=== PATIENT | female | born 1945 | race Caucasian/White ===

== ENCOUNTER 2016-10-19 07:21 | Day surgery (SDC) | payer MEDICARE ==
[~2016-10-19 07:21] MED LIST: BRIMONIDINE 0.2% OPHTH DROPS 5 ML ONE; CYCLOPENTOLATE 1% OPHTH DROPS 2 ML ONE; KETOROLAC 0.45% OPHTH DROPS ONE; PHENYLEPHRINE 2.5% OPHTH 2 ML DROPS ONE; PROPARACAINE 0.5% OPHTH DROPS 15 ML ONE; TIMOLOL 0.5% OPHTH DROPS ONE
[2016-10-19] MEDS ORDERED: PHENYLEPHRINE 2.5% OPHTH 2 ML DROPS OPTH ONE (07:39)
[2016-10-19] MEDS ORDERED: CYCLOPENTOLATE 1% OPHTH DROPS 2 ML OPTH ONE (07:39)
[2016-10-19] MEDS ORDERED: KETOROLAC 0.45% OPHTH DROPS OPTH ONE (07:39)
[2016-10-19] MEDS ORDERED: PROPARACAINE 0.5% OPHTH DROPS 15 ML OPTH ONE ×2 (07:39→08:27)
[2016-10-19] MEDS ORDERED: LACTATED RINGERS 500 ML IV ONE (07:51)
[2016-10-19] MEDS ORDERED: BRIMONIDINE 0.2% OPHTH DROPS 5 ML OPTH ONE (08:26)
[2016-10-19] MEDS ORDERED: BSS/LIDOCAINE/EPINEPHRINE 1 ML SYRINGE IO ONE ×2 (08:27)
[2016-10-19] MEDS ORDERED: CHONDR SULF/HYALURONATE SYRINGE IO ONE (08:27)
[2016-10-19] MEDS ORDERED: EPINEPHrine 1 MG/ML AMP IVP ONE (08:27)
[2016-10-19] MEDS ORDERED: TIMOLOL 0.5% OPHTH DROPS OPTH ONE (08:27)
[2016-10-19] MEDS ORDERED: TRIAMCIN/MOXIFLOX/VANCO 1 ML VIAL IO ONE ×2 (08:27)
[2016-10-19] MEDS ORDERED: MIDAZOLAM 2 MG/2 ML VIAL IVP ONE (08:30)
[2016-10-19 09:17] VITALS: BP 138/62
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
== END 2016-10-19 07:22 | disposition home or self-care (01) ==
LOC: SDS 07:21
PROVIDERS: ATTEND Ophthalmology
PROC: 08RK3JZ Replacement of Left Lens with Synthetic Substitute, Percutaneous Approach (ICD-10-PCS; principal; 2016-10-19 08:30)
DX: H25.11 Age-related nuclear cataract, right eye (principal)
CPT/HCPCS: 66984; A9270; J3490; V2632; V2788

== ENCOUNTER 2016-11-23 07:56 | Day surgery (SDC) | payer MEDICARE ==
[2016-11-23] MEDS ORDERED: LACTATED RINGERS 1,000 ML IV ONE (08:20)
[2016-11-23] MEDS ORDERED: PROPARACAINE 0.5% OPHTH DROPS 15 ML OPTH ONE ×2 (08:35→09:13)
[2016-11-23] MEDS ORDERED: KETOROLAC 0.45% OPHTH DROPS OPTH ONE (08:35)
[2016-11-23] MEDS ORDERED: PHENYLEPHRINE 2.5% OPHTH 2 ML DROPS OPTH ONE (08:35)
[2016-11-23] MEDS ORDERED: CYCLOPENTOLATE 1% OPHTH DROPS 2 ML OPTH ONE (08:35)
[2016-11-23] MEDS ORDERED: BRIMONIDINE 0.2% OPHTH DROPS 5 ML OPTH ONE (09:12)
[2016-11-23] MEDS ORDERED: EPINEPHrine 1 MG/ML AMP IVP ONE (09:12)
[2016-11-23] MEDS ORDERED: TIMOLOL 0.5% OPHTH DROPS OPTH ONE (09:13)
[2016-11-23] MEDS ORDERED: CHONDR SULF/HYALURONATE SYRINGE IO ONE (09:13)
[2016-11-23] MEDS ORDERED: BSS/LIDOCAINE/EPINEPHRINE 1 ML SYRINGE IO ONE ×2 (09:13)
[2016-11-23] MEDS ORDERED: TRIAMCIN/MOXIFLOX/VANCO 1 ML VIAL IO ONE ×2 (09:14)
[2016-11-23] MEDS ORDERED: MIDAZOLAM 2 MG/2 ML VIAL IVP ONE (09:30)
[2016-11-23 10:14] VITALS: BP 112/68
--- NOTE | 2016-11-23 10:21 | OPERATIVE REPORT ---
DATE OF SURGERY: 11/23/2016 00:00:00 PREOPERATIVE DIAGNOSIS: Visually significant cataract, left eye. Cataract surgery was performed on th e right eye on 10/19/2016. POSTOPERATIVE DIAGNOSIS: Visually significant cataract, left eye. Cataract surgery was performed on t he right eye on 10/19/2016. NAME OF PROCEDURE: Phacoemulsification posterior chamber intraocular lens implant, left eye, with las er assist. SURGEON: Edwardo Wood MD. ANESTHESIA: Monitored anesthesia care. COMPLICATIONS: None. 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 Best corrected visual acuity was 20/30 with glare to 20/60 in the left eye. Indications for surgery were overall decrease in vision, difficulty s eeing words on a computer screen, difficulty seeing words or close captions on TV, difficulty seeing street signs, difficulty driving in low light or at night. She was consented at length concerning the risks and benefits of cataract surgery, after which she expressed a desire to proceed with surgery. OPERATIVE PROCEDURE: The patient was taken to OR #2 and placed under monitored anesthesia care. A kassy gical time-out was conducted confirming the correct patient, correct procedure and correct surgical s ite. She was placed under the LenSx laser and her eye docked to the laser interface. The laser perfor med the capsulotomy, softening, phaco wounds, and arcuate keratotomy incisions. She was then moved to the operating microscope, given topical anesthesia, and prepped and draped in the usual sterile fash ion. The eye was entered at the 6- and 3 o'clock positions. Intracameral Shugarcaine was injected int o the anterior chamber, followed by Viscoat. Capsulorrhexis flap created by the LenSx laser was remov ed from the anterior chamber. The nucleus was hydrodissected and phacoemulsified. The cortex was evac uated using automated infusion aspiration. Provisc was injected into the capsular bag and a 19.[address] multifocal intraocular lens was inserted into the bag. Approximately 0.7 mL of a mixture of triam cinolone, moxifloxacin, and vancomycin was injected subconjunctivally in the superior quadrant for in fection and inflammation prophylaxis. I/A was used to evacuate the viscoelastic materials. The eye wa s inflated to a physiologic pressure using balanced salt solution and found to be watertight. The pat ient was taken from the operating room in good condition and given postoperative instructions. JOB #: [id number] EXT JOB #:[id number]
== END 2016-11-23 07:57 | disposition home or self-care (01) ==
LOC: SDS 07:56
PROVIDERS: ATTEND Ophthalmology
PROC: 08RK3JZ Replacement of Left Lens with Synthetic Substitute, Percutaneous Approach (ICD-10-PCS; principal; 2016-11-23 09:00)
DX: H25.12 Age-related nuclear cataract, left eye (principal); F17.200 Nicotine dependence, unspecified, uncomplicated
CPT/HCPCS: 66984; A9270; J3490; J7120; V2632; V2788